=== PATIENT | male | born 1985 ===

== ENCOUNTER 2018-09-28 11:09 | Emergency (ER) | payer OTHER ==
[2018-09-28 11:15] VITALS: BMI 34.8
[2018-09-28 11:17] VITALS: BP 151/90; PULSE 91; RESP 20; TEMP 98.8; O2SAT 98
--- NOTE | 2018-09-28 12:06 | C.PDOC ---
History Of Present Illness L ANKLE PAIN X 3 DAYS. HO PRIOR L ANKLE ORIF. CHRONIC BLACK DISCOLORATION BUT NOW W NEW ONSET REDNESS TO AREA. NO TRAUMA WORSE W MOVEMENT. NO FEVER. EXAM NONTOXIC EXT LLE +SWELL L LAT MALL/FOOT W LOCAL TEND. CALF WNL SKIN +CHRONIC SCARRING L ANKLE/LOWER LEG. CHRONIC DARK DISCOLORATION L DORSAL/LAT MALL. +LOCAL ERYTHEMA NONBLANCHING. NO LESIONS, WEEPING REMAINDER NEG Time Seen by Provider: 09/28/18 11:24 Chief Complaint (Nursing): Lower Extremity Problem/Injury History Per: Patient History/Exam Limitations: no limitations Onset/Duration Of Symptoms: Days Current Symptoms Are (Timing): Still Present Severity: Moderate Past Medical History Reviewed: Historical Data, Nursing Documentation, Vital Signs Vital Signs: Last Vital Signs Temp 98.8 F 09/28/18 11:15 Pulse 91 H 09/28/18 11:15 Resp 20 09/28/18 11:15 BP 151/90 H 09/28/18 11:15 Pulse Ox 98 09/28/18 11:15 - Medical History PMH: No Chronic Diseases Other Surgeries: Hx of surgeries Family History: States: No Known Family Hx - Social History Hx Alcohol Use: No Hx Substance Use: No Review Of Systems Except As Marked, All Systems Reviewed And Found Negative. Constitutional: Negative for: Fever, Chills Musculoskeletal: Positive for: Other (left ankle pain) Neurological: Negative for: Weakness, Numbness Physical Exam - Physical Exam Appears: Non-toxic Skin: Normal Color, Warm, Dry, Other (chronic scarring to left ankle and lower leg, chronic dark discoloration to left dorsal and lateral malleolus, local erythema nonblanching, no lesions, no weeping) Head: Atraumatic, Normacephalic Eye(s): bilateral: Normal Inspection Extremity: Normal ROM, Tenderness (tenderness to left foot), No Calf Tenderness, Swelling (swelling to left lateral malleolus and left foot), Other (left calf is wnl) Neurological/Psych: Oriented x3, Normal Speech ED Course And Treatment O2 Sat by Pulse Oximetry: 98 (RA) Pulse Ox Interpretation: Normal - Other Rad L ANKLE X-Ray: Interpreted by Me (CHRONIC DJD, HARDWARE; NO ACUTE FX) L FOOT X-Ray: Interpreted by Me (NEG) Medical Decision Making Medical Decision Making: Plan: --Tylenol PO --Keflex PO --Motrin PO Disposition Counseled Patient/Family Regarding: Studies Performed, Diagnosis, Need For Followup, Rx Given - Disposition Referrals: [facility] [Outside] [facility] [Outside] Disposition: HOME/ ROUTINE Disposition Time: 12:50 Condition: IMPROVED Prescriptions: Cephalexin [cephalexin] 500 mg PO BID #14 cap Naproxen 250 mg PO BID #30 tablet Instructions: Cellulitis (Skin Infection), Adult (DC) Forms: [employer] (Irish), Work Excuse Print Language: MAORI - Clinical Impression Clinical Impression: Cellulitis, Ankle pain
--- NOTE | 2018-09-28 12:55 | RAD ---
Date of service: 09/28/2018 PROCEDURE: Left Foot Radiographs. HISTORY: PAIN COMPARISON: None. FINDINGS: BONES: No acute fracture seen. For healed old fracture deformity of the 5th mid to proximal metatarsal shaft present. Abnormal bone mineralization an osseous fusion with intramedullary mohsen fusion hardware the tibiotalar and subtalar joint is suggested these lateral views. There is relative radiolucency surrounding the tibial intramedullary mohsen of unknown chronicity. No hardware failure noted. The distal intramedullary mohsen projects within the inferior calcaneal cortex with some surrounding bony osseous reactive hypertrophic changes here noted. There is also sheet like periosteal reaction callus formation bordering the posterior fibula which is partially resected. Osseous hypertrophic changes seen along the medial and lateral aspect of the hindfoot on series 1, image 1 JOINTS: Ankylosis tibiotalar and subtalar joint. Trace 1st metatarsal-phalangeal joint arthrosis. SOFT TISSUES: Diffuse soft tissue swelling about hindfoot-of unknown chronicity OTHER FINDINGS: None. IMPRESSION: Osseous hypertrophic changes osseous deformities in a an effusion suggested tibiotalar and subtalar joint. No gross hardware failure seen. No acute fracture lines. Tibial intra medullary mohsen surrounding lucency resorption 1 consideration. Chronicity of this unknown. Bordering the exuberant callus formation she like periosteal reaction bordering the partially resected distal fibular shaft. Old healed deformity 5th metatarsal as above.
--- NOTE | 2018-09-28 13:55 | RAD ---
Date of service: 09/28/2018 PROCEDURE: Left Ankle Radiographs. HISTORY: PAIN COMPARISON: None available. FINDINGS: BONES: No acute fracture appreciated. Status post tibial talar intra medullary mohsen fusion. Tibiotalar osseous and subtalar joint osseous fusion inferred. There is relative radiolucency surrounding the distal tibial metaphyseal and talar dome segments chronicity of this appearance is unknown resorption is 1 consideration. Other etiologies not excluded correlation with earlier radiographs is suggested There is sheet like chronic appearing periosteal reaction callus formation about the partially resected distal tibia No acute appearing periosteal type reaction noted. Periosteal reaction present appears mature and chronic in nature. Osseous hypertrophic changes border the medial and lateral malleolus. JOINTS: Background arthrosis with tibiotalar, and subtalar osseous fusion. SOFT TISSUES: Normal. OTHER FINDINGS: None. IMPRESSION: Extensive postop changes and osseous degenerative changes as above. No gross acute appearing fracture lines appreciated. Arthropathic changes are as above. Deformity of the 5th meta tarsal also noted on these images old healed trauma here is also inferred. No comparison studies are available
== END 2018-09-28 13:03 | disposition home or self-care (01) ==
LOC: C.ER 11:09
DX: L03.116 Cellulitis of left lower limb (principal); M25.572 Pain in left ankle and joints of left foot